=== PATIENT | male | born 1985 | race Caucasian/White ===

== ENCOUNTER 2021-02-04 18:26 | Emergency (ER) | payer OTHER ==
[2021-02-04] MEDS ORDERED: MEDROL 4MG DOSEP4 MG PO (19:26)
[2021-02-04] MEDS ORDERED: PERCOCET 7.5/321 TAB PO (19:26)
== END 2021-02-04 19:59 | disposition home or self-care (01) ==
LOC: FER 18:26
DX: S43.51XA Sprain of right acromioclavicular joint, initial encounter (principal); Z88.8 Allergy status to other drugs, medicaments and biological substances; Z88.5 Allergy status to narcotic agent; X58.XXXA Exposure to other specified factors, initial encounter
CPT/HCPCS: J1100